=== PATIENT | female | born 2005 | race Caucasian/White ===

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

== ENCOUNTER → 2023-03-06 | Outpatient (CLI) | payer OTHER | END | disposition home or self-care (01) | LOC: MRI 01:13 | PROVIDERS: ATTEND Internal Medicine | DX: S83.412A Sprain of medial collateral ligament of left knee, initial encounter (principal); M94.262 Chondromalacia, left knee; X58.XXXA Exposure to other specified factors, initial encounter; Y93.89 Activity, other specified; Y92.89 Other specified places as the place of occurrence of the external cause; Y99.8 Other external cause status ==

== ENCOUNTER → 2023-05-07 | Outpatient (CLI) | payer OTHER | LOC: CT 00:54 | PROVIDERS: ATTEND Orthopaedic Surgery | DX: M23.92 Unspecified internal derangement of left knee (principal) ==

== ENCOUNTER 2023-05-20 17:53 | Emergency (ER) | payer OTHER ==
[~2023-05-20] VITALS: Ht 154.9 cm; Wt 122.5 kg
[2023-05-20 18:07] VITALS: BP 130/73
[2023-05-20] MEDS ORDERED: CYCLOBENZAPRINE10 MG PO (18:07)
[2023-05-20] MEDS ORDERED: SODIUM CHLORIDE 0.9% 1,000 ML IV ONE (18:30)
[2023-05-20] MEDS ORDERED: ACETAMINOPHEN 500 MG TAB PO ONE (18:30)
[2023-05-20] MEDS ORDERED: IOHEXOL 300 MG/ML 100 ML VIAL IV ONE (18:45)
[2023-05-20 19:00] LABS: BASO % 0.4 % (0.0-1.0); EOS # 0.1 10*3/uL (0.0-0.4); EOS % 1.1 % (1.0-4.0); LYMPH # 0.9 10*3/uL (1.3-4.4); LYMPH % 8.4 % (27.0-41.0); MEAN CELL VOLUME 87.8 fl (81.0-99.0); MEAN CORPUSCULAR HGB 29.1 pg (27.0-31.0); MEAN CORPUSCULAR HGB CONC 33.2 g/dl (33.0-37.0); MEAN PLATELET VOLUME 10.5 fl (9.6-12.3); MONO # 0.8 10*3/uL (0.1-1.0); NEUT # 8.3 10*3/uL (2.3-7.9); NEUT % 81.8 % (47.0-73.0); PLATELET COUNT AUTOMATED 326 10*3/uL (130-400); RED BLOOD COUNT 5.01 10*6/uL (4.10-5.10); RED CELL DISTRI WIDTH 12.1 % (0-14.5); WHITE BLOOD COUNT 10.1 10*3/uL (4.8-10.8)
[2023-05-20 19:09] LABS: BILIRUBIN Negative (Negative); BLOOD Negative (Negative); CLARITY Clear (Clear); COLOR Yellow (Yellow); GLUCOSE Negative (Negative); KETONE Negative (Negative); LEUKO ESTERASE Trace (Negative); NITRITE Negative (Negative); PH 7.5 (4.5-8.0); SPECIFIC GRAVITY <= 1.005 (1.001-1.030); UROBILINOGEN 0.2 E.U./dl (0.0-1.0)
[2023-05-20 19:16] LABS: BACTERIA 2+
[2023-05-20 19:21] LABS: ALKALINE PHOSPHATASE 74 U/L (46-116); BUN 6 mg/dl (9-23); CHLORIDE 105 mmol/L (98-107); CPK 54 U/L (34-171); POTASSIUM 3.6 mmol/L (3.4-5.1); SGPT/ALT 14 U/L (5-49); TOTAL PROTEIN 7.6 gm/dL (6.0-8.0)
[2023-05-20] MEDS ORDERED: TAMIFLU 75MG CA75 MG PO (20:29)
[2023-05-20] MEDS ORDERED: Oseltamivir Phosphate 75 MG CAP PO ONE (20:30)
== END 2023-05-20 20:47 | disposition home or self-care (01) ==
LOC: ED 17:53
PROVIDERS: Physician Assistant Medical
DX: J10.1 Influenza due to other identified influenza virus with other respiratory manifestations (principal); Z20.822 Contact with and (suspected) exposure to COVID-19; R42 Dizziness and giddiness; J45.909 Unspecified asthma, uncomplicated; F90.9 Attention-deficit hyperactivity disorder, unspecified type; Z88.6 Allergy status to analgesic agent; Z98.890 Other specified postprocedural states; Z87.891 Personal history of nicotine dependence

== ENCOUNTER → 2023-07-10 | Outpatient (CLI) | payer OTHER ==
[~2023-07-10] MED LIST changes: +CYCLOBENZAPRINE10 MG PO; +TAMIFLU 75MG CA75 MG PO
[2023-07-10 12:58] LABS: FREE T4 1.55 ng/dl (0.89-1.76)
== END | disposition home or self-care (01) ==
LOC: LAB 12:11
PROVIDERS: ATTEND Internal Medicine
DX: E03.9 Hypothyroidism, unspecified (principal)

== ENCOUNTER → 2023-09-24 | Outpatient (CLI) | payer OTHER | END | disposition home or self-care (01) | LOC: LAB 17:30 | PROVIDERS: ATTEND Nurse Practitioner Family | DX: J02.9 Acute pharyngitis, unspecified (principal); R68.89 Other general symptoms and signs ==

== ENCOUNTER 2023-10-06 12:40 | Emergency (ER) | payer OTHER ==
[~2023-10-06] VITALS: Wt 124.7 kg
[2023-10-06 14:05] VITALS: BP 156/97
[2023-10-06] MEDS ORDERED: Acetaminophen/Hydrocodone 5 MG/325 MG TABLET PO ONE (14:20)
== END 2023-10-06 16:16 | disposition home or self-care (01) ==
LOC: ED 12:40
DX: S60.221A Contusion of right hand, initial encounter (principal); S69.91XA Unspecified injury of right wrist, hand and finger(s), initial encounter; J45.909 Unspecified asthma, uncomplicated; F90.9 Attention-deficit hyperactivity disorder, unspecified type; Z88.6 Allergy status to analgesic agent; Z98.890 Other specified postprocedural states; W19.XXXA Unspecified fall, initial encounter; Y93.89 Activity, other specified; Y92.89 Other specified places as the place of occurrence of the external cause; Y99.8 Other external cause status

== ENCOUNTER 2023-11-05 11:45 | Emergency (ER) | payer OTHER ==
[~2023-11-05] VITALS: Ht 152.4 cm; Wt 122.5 kg
[2023-11-05 11:51] VITALS: BP 142/96
[2023-11-05] MEDS ORDERED: SODIUM CHLORIDE 0.9% 1,000 ML IV ONE (12:00)
[2023-11-05 12:53] LABS: BILIRUBIN Negative (Negative); BLOOD Negative (Negative); CLARITY Clear (Clear); COLOR Yellow (Yellow); GLUCOSE Negative (Negative); KETONE Negative (Negative); LEUKO ESTERASE Trace (Negative); NITRITE Negative (Negative); UROBILINOGEN 0.2 E.U./dl (0.0-1.0)
[2023-11-05 12:53] LABS: BASO # 0.1 10*3/uL (0.0-0.1); BASO % 0.6 % (0.0-1.0); EOS # 0.2 10*3/uL (0.0-0.4); EOS % 1.5 % (1.0-4.0); HEMATOCRIT 43.4 % (37.0-47.0); LYMPH # 3.8 10*3/uL (1.3-4.4); LYMPH % 35.6 % (27.0-41.0); MEAN CELL VOLUME 88.6 fl (81.0-99.0); MEAN CORPUSCULAR HGB 29.8 pg (27.0-31.0); MEAN CORPUSCULAR HGB CONC 33.6 g/dl (33.0-37.0); MEAN PLATELET VOLUME 10.9 fl (9.6-12.3); MONO # 0.5 10*3/uL (0.1-1.0); MONO % 5.1 % (3.0-9.0); NEUT % 56.9 % (47.0-73.0); PLATELET COUNT AUTOMATED 304 10*3/uL (130-400); RED CELL DISTRI WIDTH 13.2 % (0-14.5); WHITE BLOOD COUNT 10.6 10*3/uL (4.8-10.8)
[2023-11-05 12:59] LABS: PH 8.5 (4.5-8.0)
[2023-11-05 13:01] LABS: BACTERIA TRACE; EPITHELIAL CELLS 21-30
[2023-11-05 13:20] LABS: CHLORIDE 103 mmol/L (98-107); POTASSIUM 4.4 mmol/L (3.4-5.1)
[2023-11-05 13:23] LABS: BUN < 5 mg/dl (9-23)
== END 2023-11-05 13:31 | disposition home or self-care (01) ==
LOC: ED 11:45
PROVIDERS: Nurse Practitioner Family
DX: E03.9 Hypothyroidism, unspecified (principal); R53.1 Weakness; R07.0 Pain in throat; J45.909 Unspecified asthma, uncomplicated; Z88.6 Allergy status to analgesic agent; Z79.899 Other long term (current) drug therapy; Z96.22 Myringotomy tube(s) status; Z98.890 Other specified postprocedural states

== ENCOUNTER → 2023-12-24 | Outpatient (CLI) | payer OTHER | END | disposition home or self-care (01) | LOC: US 10:00 | PROVIDERS: ATTEND Internal Medicine | DX: R16.1 Splenomegaly, not elsewhere classified (principal) ==

== ENCOUNTER → 2024-02-03 | Outpatient (CLI) | payer OTHER ==
[2024-02-03 14:47] LABS: FREE T4 1.26 ng/dl (0.89-1.76)
== END | disposition home or self-care (01) ==
LOC: LAB 13:17 → US 13:30
PROVIDERS: ATTEND Internal Medicine
DX: N91.1 Secondary amenorrhea (principal)

== ENCOUNTER → 2024-03-03 | Outpatient (CLI) | payer OTHER ==
[2024-03-03 17:39] LABS: FREE T4 1.27 ng/dl (0.89-1.76)
== END | disposition home or self-care (01) ==
LOC: LAB 16:05
PROVIDERS: ATTEND Internal Medicine
DX: N91.1 Secondary amenorrhea (principal)

== ENCOUNTER 2024-04-08 09:31 | Emergency (ER) | payer OTHER ==
[~2024-04-08] VITALS: Ht 152.4 cm; Wt 124.7 kg
[2024-04-08 09:59] VITALS: BP 134/85
[2024-04-08] MEDS ORDERED: SODIUM CHLORIDE 0.9% 1,000 ML IV ONE (10:15)
[2024-04-08] MEDS ORDERED: Ondansetron Hydrochloride 4 MG/2 ML VIAL IV ONE (10:15)
[2024-04-08] MEDS ORDERED: FAMOTIDINE 50 ML IV ONE (10:15)
[2024-04-08 10:57] LABS: BASO % 0.5 % (0.0-1.0); EOS # 0.2 10*3/uL (0.0-0.4); EOS % 2.6 % (1.0-4.0); HEMATOCRIT 43.3 % (37.0-47.0); MEAN CELL VOLUME 88.9 fl (81.0-99.0); MEAN CORPUSCULAR HGB 29.2 pg (27.0-31.0); MEAN CORPUSCULAR HGB CONC 32.8 g/dl (33.0-37.0); MEAN PLATELET VOLUME 10.2 fl (9.6-12.3); MONO # 0.5 10*3/uL (0.1-1.0); MONO % 6.3 % (3.0-9.0); NEUT % 70.8 % (47.0-73.0); PLATELET COUNT AUTOMATED 310 10*3/uL (130-400); RED BLOOD COUNT 4.87 10*6/uL (4.10-5.10); RED CELL DISTRI WIDTH 12.5 % (0-14.5); WHITE BLOOD COUNT 8.5 10*3/uL (4.8-10.8)
[2024-04-08 11:23] LABS: ALKALINE PHOSPHATASE 82 U/L (46-116); BUN 9 mg/dl (9-23); CHLORIDE 105 mmol/L (98-107); LIPASE 27 U/L (12-53); POTASSIUM 3.8 mmol/L (3.4-5.1); SGPT/ALT 12 U/L (5-49); TOTAL PROTEIN 7.6 gm/dL (6.0-8.0)
[2024-04-08 11:31] LABS: B-hCG (QUALITATIVE) NEGATIVE (NEGATIVE)
[2024-04-08 11:38] LABS: BILIRUBIN Negative (Negative); BLOOD Negative (Negative); CLARITY Clear (Clear); COLOR Yellow (Yellow); GLUCOSE Negative (Negative); KETONE Negative (Negative); LEUKO ESTERASE 1+ (Negative); NITRITE Negative (Negative)
[2024-04-08] MEDS ORDERED: Ondansetron4 MG PO (11:44)
[2024-04-08] MEDS ORDERED: PEPCID40 MG PO (11:44)
[2024-04-08 11:51] LABS: BACTERIA 1+; RBC 0-2 rbc/hpf (0-2)
[2024-04-08] MEDS ORDERED: OMNICEF300 MG PO (11:55)
== END 2024-04-08 12:25 | disposition home or self-care (01) ==
LOC: ED 09:31
PROVIDERS: Emergency Medicine
DX: K52.9 Noninfective gastroenteritis and colitis, unspecified (principal); N30.90 Cystitis, unspecified without hematuria; J45.909 Unspecified asthma, uncomplicated; E03.9 Hypothyroidism, unspecified; F90.9 Attention-deficit hyperactivity disorder, unspecified type; Z88.6 Allergy status to analgesic agent; Z98.890 Other specified postprocedural states; Z87.891 Personal history of nicotine dependence

== ENCOUNTER 2024-05-29 19:47 | Emergency (ER) | payer OTHER ==
[~2024-05-29] VITALS: Ht 152.4 cm; Wt 127.0 kg
[~2024-05-29 19:47] MED LIST changes: +OMNICEF300 MG PO; +Ondansetron4 MG PO; +PEPCID40 MG PO
[2024-05-29 20:00] VITALS: BP 149/89
[2024-05-29] MEDS ORDERED: LEVOTHYROXINE300 MCG PO (20:01)
[2024-05-29] MEDS ORDERED: DEXTROAMPH SACC10 M1 PO (20:01)
[2024-05-29 20:35] LABS: BASO % 0.5 % (0.0-1.0); EOS # 0.2 10*3/uL (0.0-0.4); EOS % 2.2 % (1.0-4.0); HEMATOCRIT 41.1 % (37.0-47.0); MEAN CELL VOLUME 89.5 fl (81.0-99.0); MEAN CORPUSCULAR HGB 28.5 pg (27.0-31.0); MEAN CORPUSCULAR HGB CONC 31.9 g/dl (33.0-37.0); MEAN PLATELET VOLUME 10.5 fl (9.6-12.3); MONO # 0.6 10*3/uL (0.1-1.0); MONO % 7.2 % (3.0-9.0); NEUT % 50.5 % (47.0-73.0); PLATELET COUNT AUTOMATED 291 10*3/uL (130-400); RED BLOOD COUNT 4.59 10*6/uL (4.10-5.10); RED CELL DISTRI WIDTH 12.6 % (0-14.5); WHITE BLOOD COUNT 7.9 10*3/uL (4.8-10.8)
[2024-05-29 20:51] LABS: BUN 11 mg/dl (9-23); CHLORIDE 104 mmol/L (98-107); POTASSIUM 3.9 mmol/L (3.4-5.1)
[2024-05-29 20:53] LABS: BETA-HCG, QUANT < 3.0 mIU/mL (3-10)
== END 2024-05-29 21:18 | disposition home or self-care (01) ==
LOC: ED 19:47
PROVIDERS: Physician Assistant Medical
DX: N92.0 Excessive and frequent menstruation with regular cycle (principal); J45.909 Unspecified asthma, uncomplicated; Z88.6 Allergy status to analgesic agent; Z88.8 Allergy status to other drugs, medicaments and biological substances; Z79.899 Other long term (current) drug therapy; Z96.22 Myringotomy tube(s) status

== ENCOUNTER → 2024-06-03 | Outpatient (CLI) | payer OTHER ==
[~2024-06-03] MED LIST changes: +DEXTROAMPH SACC10 M1 PO; +LEVOTHYROXINE300 MCG PO
== END | disposition home or self-care (01) ==
LOC: US 03:54
PROVIDERS: ATTEND Internal Medicine
DX: N92.1 Excessive and frequent menstruation with irregular cycle (principal)

== ENCOUNTER → 2024-06-11 | Outpatient (CLI) | payer OTHER | END | disposition home or self-care (01) | LOC: LAB 17:42 | PROVIDERS: ATTEND Nurse Practitioner Family | DX: R30.0 Dysuria (principal) ==

== ENCOUNTER → 2024-08-25 | Outpatient (CLI) | payer OTHER | END | disposition home or self-care (01) | LOC: LAB 13:08 | PROVIDERS: ATTEND Internal Medicine | DX: B34.9 Viral infection, unspecified (principal) ==

== ENCOUNTER 2024-08-28 08:59 | Emergency (ER) | payer OTHER ==
[~2024-08-28] VITALS: Ht 152.4 cm; Wt 127.0 kg
[2024-08-28 09:09] VITALS: BP 143/91
[2024-08-28 10:18] LABS: BASO % 0.5 % (0.0-1.0); EOS # 0.3 10*3/uL (0.0-0.4); EOS % 3.2 % (1.0-4.0); HEMATOCRIT 39.9 % (37.0-47.0); MEAN CORPUSCULAR HGB CONC 32.6 g/dl (33.0-37.0); MEAN PLATELET VOLUME 10.3 fl (9.6-12.3); MONO # 0.7 10*3/uL (0.1-1.0); MONO % 9.2 % (3.0-9.0); NEUT # 4.4 10*3/uL (2.3-7.9); NEUT % 57.2 % (47.0-73.0); PLATELET COUNT AUTOMATED 354 10*3/uL (130-400); RED BLOOD COUNT 4.64 10*6/uL (4.10-5.10); WHITE BLOOD COUNT 7.8 10*3/uL (4.8-10.8)
[2024-08-28 10:28] LABS: CHLORIDE 103 mmol/L (98-107); POTASSIUM 3.7 mmol/L (3.4-5.1)
[2024-08-28 10:32] LABS: BUN < 5 mg/dl (9-23)
[2024-08-28] MEDS ORDERED: AVPAK AZITHROM250 MG PO (12:11)
[2024-08-28] MEDS ORDERED: MEDROL DOSEPAK4 MG PO (12:11)
== END 2024-08-28 12:31 | disposition home or self-care (01) ==
LOC: ED 08:59
PROVIDERS: Internal Medicine
DX: J45.909 Unspecified asthma, uncomplicated (principal); Z88.6 Allergy status to analgesic agent; Z79.899 Other long term (current) drug therapy

== ENCOUNTER → 2024-08-31 | Outpatient (CLI) | payer OTHER ==
[~2024-08-31] MED LIST changes: +AVPAK AZITHROM250 MG PO
== END | disposition home or self-care (01) ==
LOC: CARD 09:30
PROVIDERS: ATTEND Internal Medicine
DX: I51.7 Cardiomegaly (principal)

== ENCOUNTER 2024-11-17 18:13 | Emergency (ER) | payer OTHER ==
[~2024-11-17] VITALS: Ht 152.4 cm; Wt 117.9 kg
[2024-11-17 19:36] VITALS: BP 146/86
[2024-11-17] MEDS ORDERED: NEXTSTELLIS 3-1 EACH PO (19:43)
[2024-11-17] MEDS ORDERED: ADDERALL 20 MG20 MG PO (19:44)
[2024-11-17] MEDS ORDERED: SODIUM CHLORIDE 0.9% 1,000 ML IV ONE (20:00)
[2024-11-17 20:12] LABS: BILIRUBIN Negative (Negative); BLOOD 2+ (Negative); CLARITY Clear (Clear); COLOR Yellow (Yellow); KETONE Trace (Negative); LEUKO ESTERASE 1+ (Negative); NITRITE Negative (Negative); PH 5.5 (4.5-8.0); SPECIFIC GRAVITY 1.020 (1.001-1.030); UROBILINOGEN 1.0 E.U./dl (0.0-1.0)
[2024-11-17 20:30] LABS: BACTERIA 1+; MUCOUS TRACE; RBC 21-30 rbc/hpf (0-2)
[2024-11-17 20:44] LABS: BASO # 0.1 10*3/uL (0.0-0.1); BASO % 0.6 % (0.0-1.0); EOS # 0.2 10*3/uL (0.0-0.4); EOS % 2.0 % (1.0-4.0); MEAN CELL VOLUME 90.5 fl (81.0-99.0); MEAN CORPUSCULAR HGB 28.9 pg (27.0-31.0); MEAN PLATELET VOLUME 10.6 fl (9.6-12.3); MONO # 0.5 10*3/uL (0.1-1.0); MONO % 5.6 % (3.0-9.0); NEUT # 5.3 10*3/uL (2.3-7.9); NEUT % 55.2 % (47.0-73.0); NUCLEATED RED BLOOD CELL 0.0 % (0.0-0.0); NUCLEATED RED BLOOD CELL 0.0 10*3/uL (0.0-0.0); PLATELET COUNT AUTOMATED 341 10*3/uL (130-400); RED CELL DISTRI WIDTH 13.5 % (0-14.5)
[2024-11-17 21:05] LABS: BUN 8 mg/dl (9-23)
[2024-11-17] MEDS ORDERED: Ciprofloxacin Hydrochloride 500 MG TAB PO ONE (21:10)
[2024-11-17] MEDS ORDERED: CIPRO500 MG PO (21:32)
[2024-11-17] MEDS ORDERED: Ondansetron Hydrochloride 4 MG TAB SL ONE (21:40)
[2024-11-17] MEDS ORDERED: Acetaminophen/Hydrocodone 5 MG/325 MG TABLET PO ONE (21:40)
== END 2024-11-17 22:20 | disposition home or self-care (01) ==
LOC: ED 18:13
PROVIDERS: Internal Medicine
DX: N39.0 Urinary tract infection, site not specified (principal); N92.0 Excessive and frequent menstruation with regular cycle; R42 Dizziness and giddiness; Z88.6 Allergy status to analgesic agent

== ENCOUNTER → 2025-02-05 | Outpatient (CLI) | payer OTHER ==
[~2025-02-05] MED LIST changes: +ADDERALL 20 MG20 MG PO; +CIPRO500 MG PO; +NEXTSTELLIS 3-1 EACH PO
[2025-02-05 12:23] LABS: BASO # 0.1 10*3/uL (0.0-0.1); BASO % 0.8 % (0.0-1.0); EOS # 0.2 10*3/uL (0.0-0.4); EOS % 2.3 % (1.0-4.0); MEAN CELL VOLUME 90.4 fl (81.0-99.0); MEAN CORPUSCULAR HGB 28.5 pg (27.0-31.0); MEAN PLATELET VOLUME 10.8 fl (9.6-12.3); MONO # 0.6 10*3/uL (0.1-1.0); MONO % 6.5 % (3.0-9.0); NEUT # 5.0 10*3/uL (2.3-7.9); NEUT % 56.4 % (47.0-73.0); NUCLEATED RED BLOOD CELL 0.0 % (0.0-0.0); NUCLEATED RED BLOOD CELL 0.0 10*3/uL (0.0-0.0); PLATELET COUNT AUTOMATED 320 10*3/uL (130-400); RED CELL DISTRI WIDTH 12.8 % (0-14.5)
[2025-02-05 12:41] LABS: BILIRUBIN Negative (Negative); BLOOD 3+ (Negative); CLARITY Clear (Clear); COLOR Orange (Yellow); KETONE Negative (Negative); LEUKO ESTERASE 1+ (Negative); NITRITE Negative (Negative); PH 7.5 (4.5-8.0); SPECIFIC GRAVITY 1.010 (1.001-1.030); UROBILINOGEN 0.2 E.U./dl (0.0-1.0)
[2025-02-05 12:44] LABS: SGPT/ALT 12 U/L (5-49)
[2025-02-05 12:46] LABS: BUN < 5 mg/dl (9-23)
[2025-02-05 13:03] LABS: FREE T4 1.85 ng/dl (0.89-1.76)
[2025-02-05 13:11] LABS: BACTERIA 1+; RBC TNTC rbc/hpf (0-2)
== END | disposition home or self-care (01) ==
LOC: US 04:25 → LAB 04:25 → US 11:00
PROVIDERS: Internal Medicine; Nurse Practitioner; ATTEND Urology
DX: N28.1 Cyst of kidney, acquired (principal); R39.9 Unspecified symptoms and signs involving the genitourinary system; R32 Unspecified urinary incontinence; E03.9 Hypothyroidism, unspecified

== ENCOUNTER → 2025-03-16 | Outpatient (CLI) | payer OTHER ==
[2025-03-16 09:48] LABS: BASO # 0.1 10*3/uL (0.0-0.1); BASO % 0.9 % (0.0-1.0); EOS # 0.1 10*3/uL (0.0-0.4); EOS % 1.4 % (1.0-4.0); MEAN CELL VOLUME 89.7 fl (81.0-99.0); MEAN CORPUSCULAR HGB 28.9 pg (27.0-31.0); MEAN PLATELET VOLUME 10.5 fl (9.6-12.3); MONO # 0.5 10*3/uL (0.1-1.0); MONO % 5.6 % (3.0-9.0); NEUT # 5.3 10*3/uL (2.3-7.9); NEUT % 61.3 % (47.0-73.0); NUCLEATED RED BLOOD CELL 0.0 % (0.0-0.0); NUCLEATED RED BLOOD CELL 0.0 10*3/uL (0.0-0.0); PLATELET COUNT AUTOMATED 322 10*3/uL (130-400); RED CELL DISTRI WIDTH 14.0 % (0-14.5)
[2025-03-18 01:06] LABS: TESTOS, FREE 1.1 pg/mL (0.0-4.2)
== END | disposition home or self-care (01) ==
LOC: LAB 01:34 → US 08:30 → LAB 08:30
PROVIDERS: ATTEND Nurse Practitioner Women's Health
DX: N83.201 Unspecified ovarian cyst, right side (principal); N85.4 Malposition of uterus; N92.6 Irregular menstruation, unspecified; R10.20 Pelvic and perineal pain unspecified side; E03.9 Hypothyroidism, unspecified; R35.0 Frequency of micturition